=== PATIENT | female | born 1990 | race African-American/Black ===

== ENCOUNTER 2021-11-25 22:18 | Inpatient (IN) | payer SELFPAY ==
[~2021-11-25] VITALS: Ht 162.6 cm; Wt 65.8 kg
[2021-11-25] MEDS ORDERED: SODIUM CHLORIDE 0.9% 1000ML 1,000 ML IV STA (22:52)
[2021-11-25 22:58] LABS: BASOPHILS % 0.2 % (0.0-1.0); EOSINOPHILS # (AUTO) 0.1 (0.0-0.4); HEMATOCRIT 42.1 % (34.2-44.1); HEMOGLOBIN 13.7 g/dL (12.0-16.0); LYMPHOCYTES # (AUTO) 2.3 (1.0-3.2); LYMPHOCYTES % 22.8 % (18.0-39.1); MEAN CORPUSCULAR HEMOGLOBIN 30.9 pg (28-32); MEAN CORPUSCULAR HGB CONC 32.5 g/dL (31-35); MONOCYTES # (AUTO) 0.6 (0.2-0.8); MONOCYTES % 5.9 % (4.4-11.3); NEUTROPHILS # (AUTO) 7.1 (2.1-6.9); NEUTROPHILS % 69.9 % (38.7-80.0); PLATELET COUNT 288 x10e3/uL (140-360); RED BLOOD COUNT 4.43 x10e6/uL (3.6-5.1); RED CELL DISTRIBUTION WIDTH 12.3 % (11.7-14.4)
[2021-11-25 22:59] LABS: CLARITY,URINE SL CLOUDY (CLEAR); COLOR,URINE YELLOW (YELLOW); KETONES,URINE NEGATIVE (NEGATIVE); LEUKOCYTE ESTERASE ,URINE NEGATIVE (NEGATIVE); NITRITE,URINE NEGATIVE (NEGATIVE); PROTEIN,URINE DIPSTICK NEGATIVE (NEGATIVE); URINE UROBILINOGEN 0.2 mg/dL (0.2 - 1)
[2021-11-25] MEDS ORDERED: ONDANSETRON HCL INJ 2MG/ML 2ML 2 MG/ML VIAL IV PRN (23:00)
[2021-11-25 23:06] LABS: BACTERIA,URINE FEW /HPF; EPITHELIAL CELLS,URINE RARE /LPF; WBC,URINE (MAN) 0-5 /HPF (0-5)
[2021-11-25 23:18] LABS: ALBUMIN/GLOBULIN RATIO 1.2 (0.8-2.0); ANION GAP 13.8 mmol/L (8-16); CALCIUM 9.3 mg/dL (8.4-10.2); CREATININE, SERUM 0.78 mg/dL (0.57-1.11); POTASSIUM 3.8 mmol/L (3.5-5.1)
[2021-11-26] MEDS ORDERED: DICYCLOMINE HCL 20 MG/2 ML VIAL IM ONE (00:45)
[2021-11-26] MEDS ORDERED: METRONIDAZOLE 500MG/NS 100ML 100 ML IV ONE (01:53)
[2021-11-26] MEDS: SODIUM CHLORIDE 0.9% 1000ML 1,000 ML IV SCH ×3 (02:00→20:05)
[2021-11-26] MEDS: Morphine 4mg INJECTION 4 MG/ML INJ IV PRN ×3 (02:57→20:59)
[2021-11-26] MEDS: ONDANSETRON HCL INJ 2MG/ML 2ML 2 MG/ML VIAL IV PRN ×3 (02:58→21:00)
[2021-11-26 15:45] VITALS: BP_SYST 100; BP_SYST 102; BP_DIAS 64
[2021-11-26 16:19] VITALS: BP 100/64
[2021-11-26 20:00] VITALS: BP 110/66
[2021-11-26 21:00] VITALS: BP 110/66
[2021-11-27] VITALS (9 sets, daily range): BP systolic 97–115; BP diastolic 55–73
[2021-11-27] MEDS: SODIUM CHLORIDE 0.9% 1000ML 1,000 ML IV SCH ×3 (01:56→16:37)
[2021-11-27] MEDS ORDERED: BUPIVACAINE 0.25% 30ML SDV ONE (09:12)
[2021-11-27] MEDS: ONDANSETRON HCL INJ 2MG/ML 2ML 2 MG/ML VIAL IV PRN (11:14)
[2021-11-27] MEDS ORDERED: FENTANYL CITRATE/PF 100MCG/2 ML INJ ONE ×2 (11:29→17:44)
[2021-11-27] MEDS ORDERED: ONDANSETRON HCL INJ 2MG/ML 2ML 2 MG/ML VIAL ONE (11:29)
[2021-11-27] MEDS: HYDROCODONE/APAP 7.5MG-325MG 1 EA TAB PO PRN (13:40)
[2021-11-27] MEDS: KETOROLAC TROMETHAMINE 30 MG/ML VIAL IV PRN ×2 (16:44→23:32)
[2021-11-27] MEDS ORDERED: MIDAZOLAM HCL 2 MG/2 ML VIAL ONE (17:44)
[2021-11-28 00:43] VITALS: BP 116/73
[2021-11-28] MEDS: SODIUM CHLORIDE 0.9% 1000ML 1,000 ML IV SCH ×3 (01:51→16:46)
[2021-11-28 05:30] VITALS: BP 104/67
[2021-11-28 07:58] VITALS: BP 103/71
[2021-11-28 08:00] VITALS: BP 103/71
[2021-11-28] MEDS: HYDROCODONE/APAP 7.5MG-325MG 1 EA TAB PO PRN ×2 (08:34→14:20)
[2021-11-28 11:45] VITALS: BP 95/64
[2021-11-28 15:26] VITALS: BP 96/73
[2021-11-28] MEDS ORDERED: Tylenol #3 PO (18:23)
[2021-11-28] MEDS ORDERED: LEVOFLOXACIN250 MG PO (18:24)
== END 2021-11-28 18:40 | disposition home or self-care (01) | DRG 418 ==
LOC: ER 22:50 → OBSVTOIN 11-26 01:57 → ERHOLD 11-26 01:57 → MED/SURG3 11-26 15:04 → OBSVTOIN 11-27 09:04 → INTOOBSV 11-27 09:04
PROVIDERS: ADMIT Surgery; ATTEND Surgery
PROC: 0FT44ZZ Resection of Gallbladder, Percutaneous Endoscopic Approach (ICD-10-PCS; principal; 2021-11-27 09:27)
DX: K80.00 Calculus of gallbladder with acute cholecystitis without obstruction (principal); K83.09 Other cholangitis; Z20.822 Contact with and (suspected) exposure to COVID-19
CPT/HCPCS: 0223U; 36415; 71045; 76705; 80053; 81001; 82948; 83605; 83690; 84484; 84702; 85025; 87040; 88304; 93005; 94799; 99284; C1766; J0500; J0696; J1885; J2250; J2270; J2405; J3010; J7030